=== PATIENT | male | born 1995 | race Asian ===

== ENCOUNTER 2021-01-06 19:36 | Emergency (ER) | payer MEDICAID ==
[~2021-01-06] VITALS: Ht 170.2 cm; Wt 74.8 kg
[2021-01-06 20:20] VITALS: BP_SYST 140
[2021-01-06 21:45] VITALS: BP_SYST 140
== END 2021-01-06 21:45 | disposition home or self-care (01) ==
LOC: SED 19:36
DX: U07.1 COVID-19 (principal)
CPT/HCPCS: 36415; 71045; 99284